=== PATIENT | female | born 1980 | race Caucasian/White ===

== ENCOUNTER → 2020-03-31 18:18 | Outpatient (CLI) | payer MEDICAID, SELFPAY ==
[2020-03-31 19:26] LABS: T4 (Thyroxine) 10.9 ug/dl (5.53-11.0)
[2020-03-31 19:39] LABS: Thyroid Stimulating Hormone 0.04 uIU/mL (0.465-4.68)
== END ==
PROVIDERS: Visit Provider Family Medicine
DX: R53.83 Other fatigue (principal)
CPT/HCPCS: 84436; 84443

== ENCOUNTER → 2020-05-29 17:42 | Outpatient (CLI) | payer MEDICAID, SELFPAY | PROVIDERS: Visit Provider Family Medicine | DX: N39.0 Urinary tract infection, site not specified (principal) | CPT/HCPCS: 87086 ==